=== PATIENT | female | born 1990 | race Caucasian/White ===

== ENCOUNTER 2020-06-11 20:07 | Emergency (ER) | payer OTHER ==
[~2020-06-11] VITALS: Ht 152.4 cm; Wt 63.5 kg
[2020-06-11 20:07] VITALS: BP 127/62
[~2020-06-11 20:07] MED LIST: CEPH-570 PO; HYDR1TAB PO; SULF1TAB48 PO
[2020-06-11] MEDS ORDERED: ONDANSETRON 4 MG TAB.RAPDIS ONE (20:32)
[2020-06-11] MEDS ORDERED: ONDANSETRON 4 MG TAB.RAPDIS SL ONE (21:00)
== END 2020-06-11 20:46 | disposition home or self-care (01) ==
LOC: ER 20:12
DX: F19.10 Other psychoactive substance abuse, uncomplicated (principal); R11.0 Nausea; R42 Dizziness and giddiness; R55 Syncope and collapse; Z79.899 Other long term (current) drug therapy
CPT/HCPCS: 99283; Q0162